=== PATIENT | male | born 1925 | race Caucasian/White ===

== ENCOUNTER 2017-02-11 08:53 | Emergency (ER) | payer MEDICARE ==
[2017-02-11 09:05] VITALS: BP 223/107; PULSE 82; RESP 20; TEMP 98.7; O2SAT 98
[2017-02-11] MEDS ORDERED: BUSP5TAB PO (09:11)
[2017-02-11] MEDS ORDERED: WARF-58 PO (09:11)
[2017-02-11] MEDS ORDERED: ATOR10TA15 PO (09:11)
[2017-02-11] MEDS ORDERED: LOSA50TA PO (09:11)
[2017-02-11] MEDS ORDERED: ASPI81CH CHEW (09:11)
[2017-02-11] MEDS ORDERED: METO25TA3 PO (09:11)
[2017-02-11] MEDS ORDERED: ONDANSETRON HCL 4 MG/2 ML VIAL IVP ONE (09:15)
[2017-02-11] MEDS ORDERED: SODIUM CHLORIDE 0.9% FLUSH 10 ML FLUSH IV FLUSH PRN (09:15)
[2017-02-11] MEDS ORDERED: LORazepam 2 MG/ML VIAL IV PUSH ONE (09:15)
--- NOTE | 2017-02-11 09:19 | PD ---
HPI Chief Complaint: GI Complaint Time Seen by Provider: 09:14 Travel History International Travel<30 days: No Contact w/Intl Traveler<30days: No Traveled to known affect area: No History of Present Illness HPI 89-year-old male patient presents to the ER today brought in by his because he is visiting from [place], and is trying to help a 99-year-old demented relative here, and he has been anxious according to his , and today reported nausea with no vomiting starting last night. He denies any chest pains , shortness of breath, diarrhea, fevers, abdominal pain, or any other symptoms. They had tried to give him buspirone which she takes on a regular basis but he states is not helping. Patient states that he last had a bowel movement 2 days ago and did have flatus today. Modifying Factors: None Associated Signs & Symptoms: Nausea, anxiety Risk Factors: None PFSH Past Medical History Atrial Fibrillation: Yes Anxiety: Yes Cancer: Yes (PROSTATE) Hypertension: Yes Past Surgical History Cholecystectomy: Yes Tonsillectomy: Yes (AND ADENOIDS) Other Surgery: Yes (PROSTATE CA REMOVED ) Social History Alcohol Use: No Tobacco Use: No Substance Use: No Allergies-Medications (Allergen,Severity, Reaction): Coded Allergies: Penicillins (Verified Allergy, Unknown, 02/11/17) Reported Meds & Prescriptions Reported Meds & Active Scripts Active Reported Losartan (Losartan Potassium) 50 Mg Tab 50 Mg PO DAILY Metoprolol Tartrate 25 Mg Tab 12.5 Mg PO DAILY Buspirone (Buspirone HCl) 5 Mg Tab 5 Mg PO BID Warfarin 3 Mg Tab 3.75 Mg PO DAILY Review of Systems Except as stated in HPI: all other systems reviewed are Neg Physical Exam Narrative GENERAL: Well-developed pleasant elderly white male patient currently in mild distress. Awake and oriented 3. SKIN: Focused skin assessment warm/dry. HEAD: Atraumatic. Normocephalic. EYES: Pupils equal and round. No scleral icterus. No injection or drainage. ENT: No nasal bleeding or discharge. Mucous membranes pink and moist. NECK: Trachea midline. No JVD. CARDIOVASCULAR: Regular rate and rhythm. No murmur appreciated. RESPIRATORY: No accessory muscle use. Clear to auscultation. Breath sounds equal bilaterally. GASTROINTESTINAL: Abdomen soft, non-tender, nondistended. Hepatic and splenic margins not palpable. MUSCULOSKELETAL: No obvious deformities. No clubbing. No cyanosis. No edema. NEUROLOGICAL: Awake and alert. No obvious cranial nerve deficits. Motor grossly within normal limits. Normal speech. PSYCHIATRIC: Appropriate mood and affect; insight and judgment normal. Data Data Last Documented VS Vital Signs Date Time Temp Pulse Resp B/P (MAP) Pulse Ox O2 Delivery O2 Flow Rate FiO2 02/11/17 10:45 68 20 177/91 (119) 95 02/11/17 09:05 98.7 Orders Orders Complete Blood Count With Diff (02/11/17 09:14) Comprehensive Metabolic Panel (02/11/17 09:14) Lipase (02/11/17 09:14) Abdomen, Flat & Upright (02/11/17 ) Iv Access Insert/Monitor (02/11/17 09:14) Ecg Monitoring (02/11/17 09:14) Oximetry (02/11/17 09:14) Ondansetron Inj (Zofran Inj) (02/11/17 09:15) Sodium Chloride 0.9% Flush (Ns Flush) (02/11/17 09:15) Electrocardiogram (02/11/17 09:14) Lorazepam Inj (Ativan Inj) (02/11/17 09:15) Labs Laboratory Tests Test 02/11/17 09:25 White Blood Count 8.6 TH/MM3 Red Blood Count 5.49 MIL/MM3 Hemoglobin 16.5 GM/DL Hematocrit 50.1 % Mean Corpuscular Volume 91.3 FL Mean Corpuscular Hemoglobin 29.9 PG Mean Corpuscular Hemoglobin Concent 32.8 % Red Cell Distribution Width 13.3 % Platelet Count 172 TH/MM3 Mean Platelet Volume 8.0 FL Neutrophils (%) (Auto) 60.9 % Lymphocytes (%) (Auto) 26.4 % Monocytes (%) (Auto) 8.3 % Eosinophils (%) (Auto) 3.8 % Basophils (%) (Auto) 0.6 % Neutrophils # (Auto) 5.2 TH/MM3 Lymphocytes # (Auto) 2.3 TH/MM3 Monocytes # (Auto) 0.7 TH/MM3 Eosinophils # (Auto) 0.3 TH/MM3 Basophils # (Auto) 0.1 TH/MM3 CBC Comment DIFF FINAL Differential Comment Blood Urea Nitrogen 18 MG/DL Creatinine 1.40 MG/DL Random Glucose 87 MG/DL Total Protein 7.1 GM/DL Albumin 3.8 GM/DL Calcium Level 9.4 MG/DL Alkaline Phosphatase 74 U/L Aspartate Amino Transf (AST/SGOT) 22 U/L Alanine Aminotransferase (ALT/SGPT) 29 U/L Total Bilirubin 1.2 MG/DL Sodium Level 141 MEQ/L Potassium Level 3.8 MEQ/L Chloride Level 104 MEQ/L Carbon Dioxide Level 29.9 MEQ/L Anion Gap 7 MEQ/L Estimat Glomerular Filtration Rate 48 ML/MIN Lipase 153 U/L [facility] Medical Decision Making Medical Screen Exam Complete: Yes Emergency Medical Condition: Yes Medical Record Reviewed: Yes Interpretation(s) EKG shows A. fib at a rate of 67 bpm with no signs of acute ST-T elevation or depressions. LVH noted. Laboratory Tests Test 02/11/17 09:25 Monocytes (%) (Auto) 8.3 % (0.0-8.0) Creatinine 1.40 MG/DL (0.60-1.30) Total Bilirubin 1.2 MG/DL (0.2-1.0) Estimat Glomerular Filtration Rate 48 ML/MIN (>89) Differential Diagnosis Nausea, anxiety: Gastroenteritis versus dysrhythmias versus anxiety attack versus obstruction Narrative Course Abdomen fairly benign and I do not suspect an acute intra-abdominal process. X- ray of the abdomen did not show any signs of acute obstruction. EKG shows atrial fibrillation which the patient has history of. At this point, my plan would be to release him with follow-up to primary care physician. Return for any worsening in symptoms as needed. The plan was discussed with patient and and they state understanding. Diagnosis Primary Impression: Nausea Med/Other Pt SpecificInfo: Prescription(s) given Scripts Ondansetron Odt (Zofran Odt) 4 Mg Tab 4 MG SL Q6HR Y for Nausea/Vomiting, #10 TAB 0 Refills Prov: Abraham Casas MD 02/11/17 Disposition: 01 DISCHARGE HOME Condition: Stable Abraham Casas MD Feb 11, 2017 09:19
[2017-02-11 09:30] LABS: AUTOMATED NEUTROPHIL # 5.2 TH/MM3 (1.8-7.7); BASOPHIL # 0.1 TH/MM3 (0-0.2); BASOPHIL % 0.6 % (0.0-2.0); EOSINOPHIL # 0.3 TH/MM3 (0-0.4); EOSINOPHIL % 3.8 % (0.0-4.0); HEMATOCRIT 50.1 % (39.0-51.0); HEMO FLAGS DIFF FINAL; LYMPH % 26.4 % (9.0-44.0); LYMPHOCYTE # 2.3 TH/MM3 (1.0-4.8); MEAN CELL VOLUME 91.3 FL (80.0-100.0); MEAN CORPUSCULAR HEMOGLOBIN 29.9 PG (27.0-34.0); MEAN CORPUSCULAR HGB CONC 32.8 % (32.0-36.0); MONO % 8.3 % (0.0-8.0); NEUT % 60.9 % (16.0-70.0); PLATELET COUNT 172 TH/MM3 (150-450); RED BLOOD COUNT 5.49 MIL/MM3 (4.50-5.90); RED CELL DISTRIBUTION WIDTH 13.3 % (11.6-17.2); WHITE BLOOD COUNT 8.6 TH/MM3 (4.0-11.0)
[2017-02-11 09:58] VITALS: O2SAT 97
[2017-02-11 10:00] VITALS: BP 179/89; PULSE 59; RESP 20; O2SAT 96
[2017-02-11 10:02] LABS: ANION GAP 7 MEQ/L (5-15); BICARBONATE 29.9 MEQ/L (21.0-32.0); CHLORIDE 104 MEQ/L (98-107); POTASSIUM 3.8 MEQ/L (3.5-5.1); SODIUM (NA) 141 MEQ/L (136-145)
--- NOTE | 2017-02-11 10:03 | RADRPT ---
EXAM DATE/TIME: 02/11/2017 09:45 [facility] COMPARISON: No previous studies available for comparison. INDICATIONS : Nausea. MEDICAL HISTORY : Hypertension. Carcinoma, prostatic. A-fib. SURGICAL HISTORY : Prostatectomy. Cholecystectomy. Tonsillectomy. Wrist surgery. ENCOUNTER: Initial ACUITY: 2 days PAIN SCORE: 0/10 LOCATION: abdomen FINDINGS: Supine and upright views of the abdomen were performed. The abdominal bowel gas pattern is normal. No air fluid levels are seen. No abnormal masses, calcifications, or organomegaly is seen. The visu alized lower lungs are clear. No evidence of free intraperitoneal gas. The osseous structures are u nremarkable. There are surgical clips in the right upper quadrant and within the pelvis. CONCLUSION: No acute disease. Saw Campos MD on February 11, 2017 at 10:01 Board Certified Radiologist. This report was verified electronically.
[2017-02-11 10:05] LABS: ALT (GPT) 29 U/L (12-78); GLOMERULAR FILTRATION RATE 48 ML/MIN (>89)
[2017-02-11 10:08] LABS: ALKALINE PHOSPHATASE 74 U/L (45-117)
[2017-02-11 10:09] LABS: BLOOD UREA NITROGEN 18 MG/DL (7-18)
[2017-02-11 10:17] LABS: AST (GOT) 22 U/L (15-37)
[2017-02-11 10:21] LABS: TOTAL BILIRUBIN ADULT 1.2 MG/DL (0.2-1.0)
[2017-02-11 10:45] VITALS: BP 177/91; PULSE 68; RESP 20; O2SAT 95
[2017-02-11] MEDS ORDERED: ZOFR4TAB3 SL (11:01)
--- NOTE | 2017-02-12 20:17 | EKG ---
Date Performed: 02/11/2017 Time Performed: 09:22:49 PTAGE: 89 years EKG: ATRIAL FIBRILLATION VOLTAGE CRITERIA FOR LVH NONSPECIFIC ST & T-WAVE ABNORMALITY ABNORMAL E CG NO PREVIOUS TRACING DOCTOR: Everett Box Interpretating Date/Time 02/12/2017 20:16:50
== END 2017-02-11 11:25 | disposition home or self-care (01) ==
LOC: PHED 08:53
DX: R11.0 Nausea (principal); I48.91 Unspecified atrial fibrillation; I10 Essential (primary) hypertension; Z79.01 Long term (current) use of anticoagulants
CPT/HCPCS: 74020; 80053; 83690; 85025; 93005; 96374; 96375; 99284; J2060; J2405

== ENCOUNTER 2017-02-14 02:42 | Emergency (ER) | payer MEDICARE ==
[~2017-02-14] VITALS: Ht 170.2 cm; Wt 74.1 kg
[2017-02-14] VITALS (12 sets, daily range): BP systolic 161–219; BP diastolic 83–124; PULSE 68–83; RESP 16–18; TEMP 97.4; O2SAT 95–97
[~2017-02-14 02:42] MED LIST: ASPI81CH CHEW; ATOR10TA15 PO; BUSP5TAB PO; LOSA50TA PO; METO25TA3 PO; WARF-58 PO; ZOFR4TAB3 SL
[2017-02-14] MEDS ORDERED: IOHEXOL 350 MG/ML 10 ML VIAL (for RAD DIAG) IVCONTRAST ONE (02:43)
--- NOTE | 2017-02-14 03:14 | PD ---
HPI Chief Complaint: GI Complaint Time Seen by Provider: 03:07 Travel History International Travel<30 days: No Contact w/Intl Traveler<30days: No Traveled to known affect area: No History of Present Illness HPI 89-year-old male presents to the emergency department by private transportation the care of her spouse for evaluation of abdominal pain nausea vomiting and constipation. Patient has had symptoms since before 02/11/17 when he was seen for evaluation of same symptoms. Patient denies fever chills cough congestion shortness of breath dysuria frequency urgency flank pain hematemesis coffee- ground emesis melena or hematochezia. Patient took an enema last evening and had some reported "explosive" [flatus] with some passage of stool. Patient typically has a bowel movement every other day and this is not atypical for him. Patient states that he thought perhaps some of his symptoms would improve but throughout the night since then he's had ongoing lower abdominal pain and discomfort. Patient denies any other concerns or complaints. Patient is visiting here from [place] to care for a 99-year-old friend with dementia which his reports has caused him to have increased stress. also reports patient stress is increased because his hearing aid is broken but he cannot be repaired while he is here [facility]. He has had changes dietary intake and decrease in his physical activity. Patient has had previous abdominal surgery with cholecystectomy and prostate surgery. Patient's had no fever or chills. Patient's discomfort is moderate in intensity, 6/10. PFSH Past Medical History Narrative Medical Anticoagulation-warfarin Atrial fibrillation anxiety prostate cancer with prostatectomy diminished hearing hypertension Atrial Fibrillation: Yes Anxiety: Yes Cancer: Yes (PROSTATE) Diminished Hearing: Yes ([facility]) Hypertension: Yes Tetanus Vaccination: < 5 Years Influenza Vaccination: Yes Past Surgical History Cholecystectomy: Yes Tonsillectomy: Yes (AND ADENOIDS) Other Surgery: Yes (PROSTATE CA REMOVED ) Social History Alcohol Use: No Tobacco Use: No Substance Use: No Allergies-Medications (Allergen,Severity, Reaction): Coded Allergies: Penicillins (Verified Allergy, Unknown, 02/14/17) Reported Meds & Prescriptions Reported Meds & Active Scripts Active Zofran Odt (Ondansetron Odt) 4 Mg Tab 4 Mg SL Q6HR PRN Reported Aspirin 81 Mg Chew 81 Mg CHEW DAILY Atorvastatin (Atorvastatin Calcium) 10 Mg Tab 10 Mg PO HS Losartan (Losartan Potassium) 50 Mg Tab 50 Mg PO DAILY Metoprolol Tartrate 25 Mg Tab 12.5 Mg PO DAILY Buspirone (Buspirone HCl) 5 Mg Tab 5 Mg PO BID Warfarin 3 Mg Tab 3.75 Mg PO DAILY Review of Systems Except as stated in HPI: all other systems reviewed are Neg General / Constitutional: No: Fever, Chills HENT: No: Congestion Cardiovascular: No: Chest Pain or Discomfort Respiratory: No: Shortness of Breath Gastrointestinal: Positive: Nausea, Vomiting, Abdominal Pain, Constipation, No : Diarrhea Genitourinary: No: Dysuria Musculoskeletal: No: Pain Neurologic: No: Weakness Psychiatric: Positive: Anxiety Hematologic/Lymphatic: No: Lymph Node Enlargement Physical Exam Narrative GENERAL: Well-developed well-nourished pleasant male in no acute distress no respiratory distress SKIN: Warm and dry. HEAD: Normocephalic. EYES: No scleral icterus. No injection or drainage. NECK: Supple, trachea midline. No JVD or lymphadenopathy. CARDIOVASCULAR: Regular rate and rhythm without murmurs, gallops, or rubs. RESPIRATORY: Breath sounds equal bilaterally. No accessory muscle use. GASTROINTESTINAL: Abdomen soft, bilateral lower quadrant tender to palpation without guarding or rebound, nondistended. MUSCULOSKELETAL: No cyanosis, or edema. BACK: Nontender without obvious deformity. No CVA tenderness. Data Data Last Documented VS Vital Signs Date Time Temp Pulse Resp B/P (MAP) Pulse Ox O2 Delivery O2 Flow Rate FiO2 02/14/17 06:09 73 16 175/83 (113) 97 Room Air 02/14/17 05:06 21 02/14/17 02:48 97.4 Orders Orders Complete Blood Count With Diff (02/14/17 03:07) Comprehensive Metabolic Panel (02/14/17 03:07) Lipase (02/14/17 03:07) Prothrombin Time / Inr (Pt) (02/14/17 03:07) Urinalysis - C+S If Indicated (02/14/17 03:07) Ct Abd/Pel W Iv Contrast(Rout) (02/14/17 03:07) Iv Access Insert/Monitor (02/14/17 03:07) Ecg Monitoring (02/14/17 03:07) Oximetry (02/14/17 03:07) Sodium Chloride 0.9% Flush (Ns Flush) (02/14/17 03:15) Admit Order (Ed Use Only) (02/14/17 ) ^ Saline Lock (02/14/17 03:29) Resp Oxygen Idris C Titrat 1-4 L (02/14/17 ) Notify Dr: Other (02/14/17 03:29) Sodium Chloride 0.9% Flush (Ns Flush) (02/14/17 09:00) Sodium Chloride 0.9% Flush (Ns Flush) (02/14/17 03:30) Iohexol 350 Inj (Omnipaque 350 Inj) (02/14/17 02:43) Lorazepam Inj (Ativan Inj) (02/14/17 05:30) Hydralazine Inj (Apresoline Inj) (02/14/17 05:30) Labs Laboratory Tests Test 02/14/17 03:15 02/14/17 04:50 White Blood Count 7.9 TH/MM3 Red Blood Count 5.51 MIL/MM3 Hemoglobin 16.9 GM/DL Hematocrit 51.0 % Mean Corpuscular Volume 92.6 FL Mean Corpuscular Hemoglobin 30.6 PG Mean Corpuscular Hemoglobin Concent 33.0 % Red Cell Distribution Width 13.5 % Platelet Count 179 TH/MM3 Mean Platelet Volume 8.4 FL Neutrophils (%) (Auto) 60.7 % Lymphocytes (%) (Auto) 27.1 % Monocytes (%) (Auto) 6.9 % Eosinophils (%) (Auto) 4.8 % Basophils (%) (Auto) 0.5 % Neutrophils # (Auto) 4.8 TH/MM3 Lymphocytes # (Auto) 2.2 TH/MM3 Monocytes # (Auto) 0.5 TH/MM3 Eosinophils # (Auto) 0.4 TH/MM3 Basophils # (Auto) 0.0 TH/MM3 CBC Comment DIFF FINAL Differential Comment Prothrombin Time 21.1 SEC Prothromb Time International Ratio 1.9 RATIO Blood Urea Nitrogen 22 MG/DL Creatinine 1.30 MG/DL Random Glucose 103 MG/DL Total Protein 7.0 GM/DL Albumin 3.7 GM/DL Calcium Level 9.2 MG/DL Alkaline Phosphatase 71 U/L Aspartate Amino Transf (AST/SGOT) 27 U/L Alanine Aminotransferase (ALT/SGPT) 31 U/L Total Bilirubin 1.0 MG/DL Sodium Level 140 MEQ/L Potassium Level 4.0 MEQ/L Chloride Level 107 MEQ/L Carbon Dioxide Level 23.7 MEQ/L Anion Gap 9 MEQ/L Estimat Glomerular Filtration Rate 52 ML/MIN Lipase 169 U/L Urine Color YELLOW Urine Turbidity CLEAR Urine pH 5.5 Urine Specific [place] 1.032 Urine Protein 30 mg/dL Urine Glucose (UA) NEG mg/dL Urine Ketones NEG mg/dL Urine Occult Blood TRACE Urine Nitrite NEG Urine Bilirubin NEG Urine Leukocyte Esterase NEG Urine WBC 0-2 /hpf Urine Squamous Epithelial Cells 0-5 /hpf Microscopic Urinalysis Comment CULT NOT INDICATED MDM Medical Decision Making Medical Screen Exam Complete: Yes Emergency Medical Condition: Yes Medical Record Reviewed: Yes Interpretation(s) Vital Signs Date Time Temp Pulse Resp B/P (MAP) Pulse Ox O2 Delivery O2 Flow Rate FiO2 02/14/17 03:15 95 Room Air 02/14/17 02:48 97.4 83 16 219/124 (155) 97 CBC & BMP Diagram 02/14/17 03:15 Total Protein 7.0, Albumin 3.7, Calcium Level 9.2, Alkaline Phosphatase 71, Aspartate Amino Transf (AST/SGOT) 27, Alanine Aminotransferase (ALT/SGPT) 31, Total Bilirubin 1.0 Differential Diagnosis Abdominal pain, constipation, bowel obstruction, coagulopathy Narrative Course IV access obtained specimens collected and sent for resulting CT abdomen and pelvis study ordered CBC metabolic panel values found to be grossly within normal range INR mildly subtherapeutic at 1.9 CT abdomen and pelvis reveals no acute intra-abdominal or pelvic abnormality per reading radiologist except some bladder stones are noted but no evidence for hydronephrosis or hydroureter Patient's blood pressure improved after Ativan for complaint of patient's anxiety and hydralazine 10 mg total dose. Patient is stable for outpatient management and is encouraged to increase fluid hydration, increase physical activity, take his chronic medications as chronically prescribed, add an extra dose of MiraLAX to his bowel regimen and fruit juice as well. Diagnosis Primary Impression: Nausea Additional Impression: HTN (hypertension) Referrals: Primary Care Physician call for appointment Patient Instructions: General Instructions Additional Instructions: Increase fluid hydration Increase physical activity May take additional dose of MiraLAX daily Take chronic medications as chronically prescribed May use Phenergan for management of nausea or vomiting if he remains symptomatic or intolerant of Zofran Monitor temperature with thermometer and administer acetaminophen/Tylenol for fever 100.4F or greater May use acetaminophen/Tylenol as often as every 4 hours for minor pain Return to the emergency department for any concerns or change in condition Med/Other Pt SpecificInfo: Prescription(s) given Scripts Promethazine (Phenergan) 25 Mg Tablet 25 MG PO Q6H Y for NAUSEA OR VOMITING, #10 TAB 0 Refills Prov: Annel Soria MD 02/14/17 Disposition: 01 DISCHARGE HOME Condition: Stable Annel Soria MD Feb 14, 2017 03:14
[2017-02-14] MEDS ORDERED: SODIUM CHLORIDE 0.9% FLUSH 10 ML FLUSH IV FLUSH PRN (03:15)
[2017-02-14] MEDS ORDERED: SODIUM CHLORIDE 0.9% FLUSH 10 ML FLUSH IVF PRN (03:30)
[2017-02-14 03:37] LABS: AUTOMATED NEUTROPHIL # 4.8 TH/MM3 (1.8-7.7); BASOPHIL % 0.5 % (0.0-2.0); EOSINOPHIL # 0.4 TH/MM3 (0-0.4); EOSINOPHIL % 4.8 % (0.0-4.0); HEMO FLAGS DIFF FINAL; LYMPH % 27.1 % (9.0-44.0); LYMPHOCYTE # 2.2 TH/MM3 (1.0-4.8); MEAN CELL VOLUME 92.6 FL (80.0-100.0); MEAN CORPUSCULAR HEMOGLOBIN 30.6 PG (27.0-34.0); MONO % 6.9 % (0.0-8.0); NEUT % 60.7 % (16.0-70.0); PLATELET COUNT 179 TH/MM3 (150-450); RED BLOOD COUNT 5.51 MIL/MM3 (4.50-5.90); RED CELL DISTRIBUTION WIDTH 13.5 % (11.6-17.2); WHITE BLOOD COUNT 7.9 TH/MM3 (4.0-11.0)
[2017-02-14 04:07] LABS: CHLORIDE 107 MEQ/L (98-107); SODIUM (NA) 140 MEQ/L (136-145)
[2017-02-14 04:10] LABS: INTERNATIONAL NORMALIZED RATIO 1.9 RATIO; PROTHROMBIN TIME - PATIENT 21.1 SEC (9.8-11.6)
[2017-02-14 04:12] LABS: ANION GAP 9 MEQ/L (5-15); BICARBONATE 23.7 MEQ/L (21.0-32.0); BLOOD UREA NITROGEN 22 MG/DL (7-18)
[2017-02-14 04:14] LABS: ALT (GPT) 31 U/L (12-78); AST (GOT) 27 U/L (15-37)
[2017-02-14 04:15] LABS: GLOMERULAR FILTRATION RATE 52 ML/MIN (>89)
[2017-02-14 04:17] LABS: ALKALINE PHOSPHATASE 71 U/L (45-117)
--- NOTE | 2017-02-14 05:00 | RADRPT ---
EXAM DATE/TIME: 02/14/2017 04:33 [facility] COMPARISON: No previous studies available for comparison. INDICATIONS : Nausea, vomiting, constipation for 1 week. IV CONTRAST: 94 cc Omnipaque 350 (iohexol) IV ORAL CONTRAST: No oral contrast ingested. RADIATION DOSE: 9.98 CTDIvol (mGy) MEDICAL HISTORY : Hypertension. Carcinoma, prostate. SURGICAL HISTORY : Prostatectomy. ENCOUNTER: Initial ACUITY: 1 week PAIN SCALE: 9/10 LOCATION: abdomen TECHNIQUE: Volumetric scanning of the abdomen and pelvis was performed. Using automated exposure control and ad justment of the mA and/or kV according to patient size, radiation dose was kept as low as reasonably achievable to obtain optimal diagnostic quality images. DICOM format image data is available electro nically for review and comparison. FINDINGS: LOWER LUNGS: The visualized lower lungs are clear. LIVER: Homogeneous density without lesion. There is no dilation of the biliary tree. Cholecystectomy clips. SPLEEN: Normal size without lesion. PANCREAS: Within normal limits. KIDNEYS: Normal in size and shape. There is no mass, stone or hydronephrosis. Mild scarring lower pole left k idney ADRENAL GLANDS: Within normal limits. VASCULAR: There is no aortic aneurysm. BOWEL/MESENTERY: The stomach, small bowel, and colon demonstrate no acute abnormality. There is no free intraperitone al air or fluid. ABDOMINAL WALL: Within normal limits. RETROPERITONEUM: There is no lymphadenopathy. BLADDER: No wall thickening or mass. There are calcifications in the dependent portion of the bladder. Neithe r ureter is dilated REPRODUCTIVE: Within normal limits. INGUINAL: There is no lymphadenopathy or hernia. MUSCULOSKELETAL: Within normal limits for patient age. CONCLUSION: Bladder calcifications likely stones. The contrasted nephrograms are symmetric without evidence of ac council obstruction. Tommy Rod MD on February 14, 2017 at 4:56 Board Certified Radiologist. This report was verified electronically.
[2017-02-14 05:29] LABS: BLOOD, URINE TRACE (NEG); GLUCOSE,URINE NEG (NEG); KETONE, URINE NEG (NEG); NITRITE,URINE NEG (NEG); PH, URINE 5.5 (5.0-8.5)
[2017-02-14] MEDS ORDERED: hydrALAZINE HCL 20 MG/ML VIAL IV PUSH ONE (05:30)
[2017-02-14] MEDS ORDERED: LORazepam 2 MG/ML VIAL IV PUSH ONE (05:30)
[2017-02-14 06:08] LABS: COMMENT (UR) CULT NOT INDICATED; CULTURE IF INDICATED CULT NOT INDICATED; SQUAMOUS EPITHELIAL CELL URINE 0-5 /hpf (0-5); URINE COLOR YELLOW (YELLW/STRAW); WBC, URINE 0-2 /hpf (0-5)
[2017-02-14] MEDS ORDERED: PROM25TA10 PO (06:17)
[2017-02-14] MEDS ORDERED: SODIUM CHLORIDE 0.9% FLUSH 10 ML FLUSH IV FLUSH SCH (09:00)
== END 2017-02-14 06:37 | disposition home or self-care (01) ==
LOC: PHED 02:42
DX: R11.0 Nausea (principal); I10 Essential (primary) hypertension; Z85.46 Personal history of malignant neoplasm of prostate; I48.91 Unspecified atrial fibrillation; H91.90 Unspecified hearing loss, unspecified ear; Z79.01 Long term (current) use of anticoagulants
CPT/HCPCS: 74177; 80053; 81001; 83690; 85025; 85610; 96374; 96375; 99285; J0360; J2060; Q9967

== ENCOUNTER 2017-02-16 09:07 | Emergency (ER) | payer MEDICARE ==
[~2017-02-16] VITALS: Ht 170.2 cm; Wt 74.0 kg
[~2017-02-16 09:07] MED LIST changes: +PROM25TA10 PO
[2017-02-16 09:09] VITALS: BP 174/93; PULSE 90; RESP 18; TEMP 97.8; O2SAT 96
[2017-02-16] MEDS ORDERED: LORA-474 PO (09:38)
--- NOTE | 2017-02-16 09:38 | PD ---
HPI Chief Complaint: Complaint Time Seen by Provider: 09:17 Travel History International Travel<30 days: No Contact w/Intl Traveler<30days: No Traveled to known affect area: No History of Present Illness HPI This 89-year-old male is brought in with multiple complaints. He says that sometimes he feels like he has to urinate and he doesn't. He has had some lower abdominal discomfort. He says it is not severe pain. She is visiting here from [place] and is here with his . She says that he has a history of anxiety and she believes was having exacerbation of his anxiety. She has given him some Tylenol PM at bedtime to try to get him to sleep. He has had a prostate resection because of prostate cancer. He was here 2 days ago and had lab work and a CT scan of the abdomen and pelvis which were normal he is here with grandma to same symptoms he was having then. He has not had fever or chills. He has a history of atrial fibrillation and is on Coumadin. He was nauseated on his previous visits but he is not complaining of nausea at this time. He has prescriptions for Phenergan and for Zofran from his previous visits. He was given Ativan the other day and his says that helped him PFSH Past Medical History Atrial Fibrillation: Yes Anxiety: Yes Cancer: Yes (PROSTATE) High Cholesterol: Yes Diminished Hearing: Yes ([facility]) Hypertension: Yes Influenza Vaccination: Yes ?: Not Past Surgical History Cholecystectomy: Yes Tonsillectomy: Yes (AND ADENOIDS) Other Surgery: Yes (PROSTATE CA REMOVED ) Social History Alcohol Use: Yes (MODERATLY) Tobacco Use: No Substance Use: No Allergies-Medications (Allergen,Severity, Reaction): Coded Allergies: Penicillins (Verified Allergy, Unknown, 02/16/17) Reported Meds & Prescriptions Reported Meds & Active Scripts Active Phenergan (Promethazine HCl) 25 Mg Tablet 25 Mg PO Q6H PRN Zofran Odt (Ondansetron Odt) 4 Mg Tab 4 Mg SL Q6HR PRN Reported Aspirin 81 Mg Chew 81 Mg CHEW DAILY Atorvastatin (Atorvastatin Calcium) 10 Mg Tab 10 Mg PO HS Losartan (Losartan Potassium) 50 Mg Tab 50 Mg PO DAILY Metoprolol Tartrate 25 Mg Tab 12.5 Mg PO DAILY Buspirone (Buspirone HCl) 5 Mg Tab 5 Mg PO BID Warfarin 3 Mg Tab 3.75 Mg PO DAILY Review of Systems General / Constitutional: No: Fever, Chills HENT: No: Headaches Cardiovascular: Positive: Irregular Rhythm, No: Chest Pain or Discomfort, Palpitations Respiratory: No: Cough Gastrointestinal: Positive: Constipation, No: Nausea, Vomiting, Diarrhea Genitourinary: Positive: Urgency, Frequency Musculoskeletal: No: Myalgias, Arthralgias Neurologic: No: Weakness Endocrine: No: Heat Intolerance, Cold Intolerance Hematologic/Lymphatic: No: Easy Bruising Physical Exam Narrative GENERAL: Well-developed male SKIN: Focused skin assessment warm/dry. HEAD: Atraumatic. Normocephalic. EYES: Pupils equal and round. No scleral icterus. No injection or drainage. ENT: No nasal bleeding or discharge. Mucous membranes pink and moist. NECK: Trachea midline. No JVD. CARDIOVASCULAR: Regular rate and rhythm. No murmur appreciated. RESPIRATORY: No accessory muscle use. Clear to auscultation. Breath sounds equal bilaterally. GASTROINTESTINAL: Abdomen soft, non-tender, nondistended. Hepatic and splenic margins not palpable. Bowel sounds active. There is no bladder distention MUSCULOSKELETAL: No obvious deformities. No clubbing. No cyanosis. No edema. NEUROLOGICAL: Awake and alert. No obvious cranial nerve deficits. Motor grossly within normal limits. Normal speech. PSYCHIATRIC: Anxious mood and affect; insight and judgment normal. Data Data Last Documented VS Vital Signs Date Time Temp Pulse Resp B/P (MAP) Pulse Ox O2 Delivery O2 Flow Rate FiO2 02/16/17 09:09 97.8 90 18 174/93 (120) 96 MDM Medical Decision Making Medical Screen Exam Complete: Yes Emergency Medical Condition: Yes Medical Record Reviewed: Yes Differential Diagnosis Differential includes adverse medication reaction, dysuria, anxiety Narrative Course Has had some trouble urinating and his has been giving him Benadryl. I recommended that she stop the Benadryl and instead I will prescribe some Ativan. He has not been sleeping and has been very nervous. His lab work was unremarkable 2 days ago and I don't think a repeat it. He does not appear dehydrated. Diagnosis Primary Impression: Anxiety Scripts Lorazepam (Ativan) 1 Mg Tab 1 MG PO Q8H Y for ANXIETY AND/OR AGITATION, #10 TAB 0 Refills Prov: Solitario Sanchez MD 02/16/17 Disposition: 01 DISCHARGE HOME Condition: Stable Solitario Sanchez MD Feb 16, 2017 09:38
== END 2017-02-16 09:51 | disposition home or self-care (01) ==
LOC: PHED 09:07
DX: F41.9 Anxiety disorder, unspecified (principal); I48.91 Unspecified atrial fibrillation; E78.00 Pure hypercholesterolemia, unspecified; H91.90 Unspecified hearing loss, unspecified ear; I10 Essential (primary) hypertension
CPT/HCPCS: 99283